=== PATIENT | female | born 1965 | race Caucasian/White ===

== ENCOUNTER 2018-04-01 06:29 | Emergency (ER) | payer BC ==
[2018-04-01 06:38] VITALS: RESP 18
[2018-04-01 07:04] LABS: Basophils % (A) 1 %; Eosinophils # (A) 0.1 k/uL (0-0.7); Eosinophils % (A) 2 %; HCT 42.4 % (34.0-46.0); HGB 14.2 gm/dL (11.4-16.0); Lymphocytes % (A) 17 %; MCH 27.7 pg (25.0-35.0); MCHC 33.4 g/dL (31.0-37.0); Mean Platelet Volume 6.5; Monocytes # (A) 0.3 k/uL (0-1.0); Monocytes % (A) 4 %; Neutrophils # (A) 4.4 k/uL (1.3-7.7); Neutrophils % (A) 75 %; Platelet Count 177 k/uL (150-450); RBC 5.11 m/uL (3.80-5.40); RDW 13.9 % (11.5-15.5); WBC 5.9 k/uL (3.8-10.6)
[2018-04-01 07:19] LABS: Albumin 4.2 g/dL (3.5-5.0); Calcium 9.6 mg/dL (8.4-10.2); Total Bilirubin 1.5 mg/dL (0.2-1.3)
[2018-04-01] MEDS ORDERED: KETOROLAC 30 MG/ML 1 ML VIAL IVP STA (07:21)
[2018-04-01] MEDS ORDERED: PANTOPRAZOLE 40 MG/10 ML VIAL IVP STA (07:21)
[2018-04-01] MEDS ORDERED: MORPHINE SULFATE 4 MG/ML SYRINGE IVP STA (07:21)
[2018-04-01] MEDS ORDERED: ONDANSETRON 4 MG/2 ML VIAL IVP STA (07:21)
[2018-04-01] MEDS ORDERED: SODIUM CHLORIDE 0.9% 1,000 ML IV STA (07:23)
--- NOTE | 2018-04-01 07:36 | ED ---
Abdominal Pain HPI - General Chief Complaint: Abdominal Pain Stated Complaint: Chest Pain Time Seen by Provider: 04/01/18 07:17 Source: patient, family, RN notes reviewed, old records reviewed Mode of arrival: ambulatory Limitations: no limitations - History of Present Illness MD Complaint: abdominal pain (RUQ) -: hour(s) Location: RUQ, epigastric, R flank Radiation: back Migration to: epigastric Severity scale (1-10): 7 Quality: stabbing, burning Consistency: constant Improves With: nothing Worsens With: eating Associated Symptoms: nausea Treatments Prior to Arrival: other - Related Data Home Medications Medication Instructions Recorded Confirmed Cholecalciferol (Vitamin D3) 2,000 unit PO DAILY 04/01/18 04/01/18 [Vitamin D3] Lisinopril 30 mg PO DAILY 04/01/18 04/01/18 Metoprolol Tartrate [Lopressor] 100 mg PO BID 04/01/18 04/01/18 Tamoxifen [Nolvadex] 20 mg PO DAILY 04/01/18 04/01/18 Tolterodine ER [Detrol LA] 4 mg PO DAILY 04/01/18 04/01/18 Allergies Allergy/AdvReac Type Severity Reaction Status Date / Time No Known Allergies Allergy Verified 04/01/18 07:49 Review of Systems ROS Statement: Those systems with pertinent positive or pertinent negative responses have been documented in the HPI. ROS Other: All systems not noted in ROS Statement are negative. Past Medical History Past Medical History: Cancer, Hypertension Additional Past Medical History / Comment(s): Breast CA, double mastectomy, heart murmur History of Any Multi-Drug Resistant Organisms: None Reported Past Surgical History: Breast Surgery, Section, Tonsillectomy Past Psychological History: No Psychological Hx Reported Smoking Status: Never smoker Past Alcohol Use History: None Reported Past Drug Use History: None Reported General Exam Limitations: no limitations General appearance: alert, in no apparent distress, obese Head exam: Present: atraumatic, normocephalic, normal inspection Eye exam: Present: normal appearance, PERRL, EOMI. Absent: scleral icterus, conjunctival injection, periorbital swelling ENT exam: Present: normal exam, mucous membranes moist Neck exam: Present: normal inspection. Absent: tenderness, meningismus, lymphadenopathy Respiratory exam: Present: normal lung sounds bilaterally. Absent: respiratory distress, wheezes, rales, rhonchi, stridor Cardiovascular Exam: Present: regular rate, normal rhythm, normal heart sounds. Absent: systolic murmur, diastolic murmur, rubs, gallop, clicks GI/Abdominal exam: Present: soft, tenderness (RUQ), normal bowel sounds. Absent : distended, guarding, rebound, rigid Extremities exam: Present: normal inspection, full ROM, normal capillary refill. Absent: tenderness, pedal edema, joint swelling, calf tenderness Back exam: Present: normal inspection Neurological exam: Present: alert, oriented X3, CN II-XII intact Psychiatric exam: Present: normal affect, normal mood Skin exam: Present: warm, dry, intact, normal color. Absent: rash Course Vital Signs 04/01/18 04/01/18 04/01/18 06:33 07:18 09:00 Temperature 98.6 F Pulse Rate 96 81 78 Respiratory 18 18 Rate Blood Pressure 191/122 174/105 170/98 O2 Sat by Pulse 100 98 97 Oximetry - Reevaluation(s) Reevaluation #1: 04/01/18 09:24 Medical record reviewed, noncontributory Reevaluation #2: 04/01/18 09:24 Patient has adequate pain control, consult regarding dietary changes Reevaluation #3: 04/01/18 09:[address] Neves who will see patient in an outpatient setting 04/01/18 09:24 Spoke with patient who is agreeable to follow-up Medical Decision Making - Lab Data Result diagrams: 04/01/18 06:40 04/01/18 06:40 Lab Results 04/01/18 04/01/18 04/01/18 Range/Units 06:40 06:40 08:55 WBC 5.9 (3.8-10.6) k/uL RBC 5.11 (3.80-5.40) m/uL Hgb 14.2 (11.4-16.0) gm/dL Hct 42.4 (34.0-46.0) % MCV 83.0 (80.0-100.0) fL MCH 27.7 (25.0-35.0) pg MCHC 33.4 (31.0-37.0) g/dL RDW 13.9 (11.5-15.5) % Plt Count 177 (150-450) k/uL Neutrophils % 75 % Lymphocytes % 17 % Monocytes % 4 % Eosinophils % 2 % Basophils % 1 % Neutrophils # 4.4 (1.3-7.7) k/uL Lymphocytes # 1.0 (1.0-4.8) k/uL Monocytes # 0.3 (0-1.0) k/uL Eosinophils # 0.1 (0-0.7) k/uL Basophils # 0.0 (0-0.2) k/uL Sodium 139 (137-145) mmol/L Potassium 4.0 (3.5-5.1) mmol/L Chloride 105 (98-107) mmol/L Carbon Dioxide 27 (22-30) mmol/L Anion Gap 7 mmol/L BUN 11 (7-17) mg/dL Creatinine 0.88 (0.52-1.04) mg/dL Est GFR (CKD-EPI)AfAm 89 (>60 ml/min/1.73 sqM) Est GFR (CKD-EPI)NonAf 77 (>60 ml/min/1.73 sqM) Glucose 121 H (74-99) mg/dL Calcium 9.6 (8.4-10.2) mg/dL Total Bilirubin 1.5 H (0.2-1.3) mg/dL AST 225 H (14-36) U/L ALT 115 H (9-52) U/L Alkaline Phosphatase 107 (38-126) U/L Total Protein 7.0 (6.3-8.2) g/dL Albumin 4.2 (3.5-5.0) g/dL Amylase 77 (30-110) U/L Lipase 211 (23-300) U/L Urine Color Yellow Urine Appearance Clear (Clear) Urine pH 8.0 (5.0-8.0) Ur Specific [place] 1.007 (1.001-1.035) Urine Protein Negative (Negative) Urine Glucose (UA) Negative (Negative) Urine Ketones Negative (Negative) Urine Blood Negative (Negative) Urine Nitrite Negative (Negative) Urine Bilirubin Negative (Negative) Urine Urobilinogen 2.0 (<2.0) mg/dL Ur Leukocyte Esterase Negative (Negative) - EKG Data -: EKG Interpreted by Me (EKG shows sinus rhythm rate of 92, VA 154, QRS 70, QTc 462) - Radiology Data Radiology results: report reviewed (XR Kub is negative for acute disease, US gallbladder is to show some over the gallbladder wall but no acute cholecystitis ), image reviewed Disposition Clinical Impression: Abdominal pain, Biliary colic Disposition: HOME SELF-CARE Condition: Good Instructions (If sedation given, give patient instructions): Biliary Colic (ED) , Low Fat Diet (ED) Is patient prescribed a controlled substance at d/c from ED?: No Referrals: Gela Neves DO [Doctor of Osteopathic Medicine] - 1-2 days
--- NOTE | 2018-04-01 08:04 | XR ---
EXAMINATION TYPE: XR KUB , 2 VIEWS DATE OF EXAM ORDERED: 04/01/2018 HISTORY: abdominal pain. COMPARISON: None. FINDINGS: Lung bases are clear. Within the abdomen, the abdominal gas pattern is normal. There is no evidence of obstruction or free air. There are phleboliths within the pelvis. IMPRESSION: NO ACUTE INTRA-ABDOMINAL ABNORMALITY.
--- NOTE | 2018-04-01 09:02 | US ---
EXAMINATION TYPE: US gallbladder DATE OF EXAM: 04/01/2018 COMPARISON: NONE CLINICAL HISTORY: Pain. Abd and chest pain. Difficult and limited exam due to patient body habitus an d overlying bowel gas EXAM MEASUREMENTS: Liver Length: 15.7 cm Gallbladder Wall: 0.6 cm CBD: 0.6 cm Right Kidney: 11.8 x 5.3 x 4.2 cm Pancreas: Obscured by bowel gas, visualized portions wnl Liver: Coarse, heterogeneous echotexture. Two cystic areas visualized in the left lobe, largest [place] uring 1.5 x 1.1 x 1.5 cm Gallbladder: Wall appears thickened. Multiple non-mobile echogenic foci visualized, probable polyps. Evidence for sonographic Vieira's sign: No CBD: Measuring upper limits of normal. Difficult and limited visualization Right Kidney: No hydronephrosis. Possible parapelvic renal cysts visualized, largest measuring 0.9 c m Limited views of the pancreas are normal. The liver is normal in size. There are 2 hypoechoic lesions noted within the left lobe. These do not meet the requirements for simple cyst. The gallbladder wall is thickened measuring 6 mm. No definite calculi are seen. There are some questi onable polyps present. There is no sonographic Vieira's sign. The distal common hepatic duct measures 6 mm. The right kidney is unremarkable. IMPRESSION: PROBABLE GALLBLADDER POLYPS.
[2018-04-01 09:22] LABS: Appearance,Urine Clear (Clear); Bilirubin,Urine Negative (Negative); Blood,Urine Negative (Negative); Color,Urine Yellow; Glucose,Urine (UA) Negative (Negative); Ketones,Urine Negative (Negative); Leukocyte Esterase,Urine Negative (Negative); Nitrite,Urine Negative (Negative); Protein,Urine Negative (Negative); Specific Gravity,Urine 1.007 (1.001-1.035)
[2018-04-01 09:59] VITALS: BP 157/97; PULSE 84; TEMP 98.3
== END 2018-04-01 09:55 | disposition home or self-care (01) ==
LOC: EC 06:29
DX: K80.50 Calculus of bile duct without cholangitis or cholecystitis without obstruction (principal); I10 Essential (primary) hypertension; Z85.3 Personal history of malignant neoplasm of breast; Z79.899 Other long term (current) drug therapy; Z53.29 Procedure and treatment not carried out because of patient's decision for other reasons
CPT/HCPCS: 36415; 80053; 82150; 83690; 85025; 81003; 74018; 76705; 99285; 96374; 96375 ×2; 96361 ×2; J2405; J1885; C9113

== ENCOUNTER → 2020-04-18 | Outpatient (CLI) | payer BC ==
--- NOTE | 2020-04-18 13:32 | MR ---
EXAMINATION TYPE: MR shoulder RT wo con DATE OF EXAM: 04/18/2020 1:00 PM COMPARISON: NONE HISTORY: Rt shoulder pain TECHNIQUE: Multiplanar multispin echo imaging of the right shoulder was performed. FINDINGS: Rotator cuff : There is thickening and heterogeneity of the supraspinatus tendon compatible with perinatal breastfeeding assistant yahir tendinopathy. Intrasubstance microtears noted. No evidence for full-thickness tear. Bursa: No bursal effusion or thickening is seen. Musculature: There is no muscular tear, contusion, or atrophy. Acromioclavicular joint : There are mild degenerative changes of the acromioclavicular joint. There is no anterior or lateral acromial downsloping. Osseous structures : There are no fractures or regions of abnormal bone marrow signal intensity. Long biceps tendon : The biceps tendon is normally situated within the bicipital groove. No complete or partial biceps tendon tear is present. Glenohumeral Joint fluid : There is no glenohumeral joint effusion. Cartilage and Bone : Large solid mass partially imaged involving the right scapula. Mass measures an estimated 8.2 x 8.4 cm although is likely a larger in size. Labrum : There are no SLAP or soft tissue Bankart lesions. No paralabral cysts are seen. OTHER FINDINGS : none IMPRESSION: 1. Large partially imaged soft tissue mass involving the right scapula with suggested areas of bone d estruction. Consider a sarcoma among other possibilities. MRI with and without contrast with a larger field of view is advised and/or CT. 2. Chronic tendinopathy supraspinatus tendon. A [place] critical message alert has been initiated for Ace Pino MD via the [employer] Critical Results System on 04/18/2020 1:29 PM. This message alert has been sent to Ace Pino MD via the preferences provided by the clinician for the receipt of Radiology Critical Findings. Message ID [id number].
== END | disposition home or self-care (01) ==
LOC: RADMRIMAIN 12:12
PROVIDERS: ATTEND Orthopaedic Surgery
DX: M67.813 Other specified disorders of tendon, right shoulder (principal); M79.89 Other specified soft tissue disorders